=== PATIENT | male | born 1975 | race Caucasian/White ===

== ENCOUNTER 2016-06-29 23:05 | Emergency (ER) | payer OTHER ==
[~2016-06-29 23:05] MED LIST: AMOXICILLIN875 MG PO; ASACOL HD800 MG PO; ASACOL400 MG PO; CLEOCIN PO; FLEXERIL10 MG PO; HYDROCODON-ACE1 EAC4; IBUPROFEN800 MG PO; LIORESAL10 MG PO; LORTAB 7.5-5001 TAB PO; MIRALAX17 GM PO; NORCO1 TAB 10/3 PO; PREDNISONE PO; SENNA8.6 M1 PO; VICODIN 5/1 TAB 5/50 PO
== END 2016-06-30 00:07 | disposition home or self-care (01) ==
LOC: SED 23:05
DX: S16.1XXA Strain of muscle, fascia and tendon at neck level, initial encounter (principal); Z79.899 Other long term (current) drug therapy; X58.XXXA Exposure to other specified factors, initial encounter; Y92.89 Other specified places as the place of occurrence of the external cause
CPT/HCPCS: 99283